=== PATIENT | male | born 1940 | race Caucasian/White ===

== ENCOUNTER 2018-05-19 05:38 | Inpatient (IN) ==
[2018-05-19] MEDS ORDERED: Sodium Chlor 0.9% Inj 500 ML IV.CONT ONE (06:15)
[2018-05-19] MEDS ORDERED: Chlorhexidine Gluconate 2% 1 Pack (2 Cloths) TOPICAL ONE (06:15)
[2018-05-19] MEDS ORDERED: Metoprolol Tartrate 25 MG Tablet PO ONE (06:15)
[2018-05-19 06:27] LABS: Baso # (Auto) 0.1 th/mm3 (0.0-0.2); Baso % (Auto) 0.8 % (0.0-2.0); Eos # (Auto) 0.2 th/mm3 (0.0-0.4); Hematocrit 42.2 % (39.0-51.0); Hemoglobin 14.5 gm/dL (13.0-17.0); Lymph # (Auto) 2.4 th/mm3 (1.0-4.8); Lymph % (Auto) 32.4 % (9.0-44.0); Mean Corpuscular HGB Conc 34.4 % (32.0-36.0); Mean Corpuscular Hemoglobin 32.3 pg (27.0-34.0); Mean Platelet Volume 8.9 fL (7.0-11.0); Mono # (Auto) 0.7 th/mm3 (0.0-0.9); Mono % (Auto) 8.9 % (0.0-8.0); Neut # (Auto) 4.1 th/mm3 (1.8-7.7); Neut % (Auto) 54.9 % (16.0-70.0); Platelet Count 139 th/mm3 (150-450); Red Blood Count 4.49 mil/mm3 (4.50-5.90); Red Cell Distribution Width 12.8 % (11.6-17.2); White Blood Count 7.5 th/mm3 (4.0-11.0)
[2018-05-19] MEDS ORDERED: ceFAZolin 2 GM Premix Inj 2 GM/50 ML PIGGYBACK IV.SIG ONE (06:28)
[2018-05-19] MEDS ORDERED: Gelatin Size 100 Topical Foam ONE (06:28)
[2018-05-19] MEDS ORDERED: Heparin 10,000 UNITS/10 ML Vial (for IV use) ONE (06:28)
[2018-05-19] MEDS ORDERED: Heparin/NS PF Inj 500 ML ONE (06:28)
[2018-05-19] MEDS ORDERED: Thrombin Topical Soln 20,000 UNIT Vial TOPICAL ONE (06:29)
[2018-05-19] MEDS ORDERED: Protamine Sulfate Inj 50 MG/5 ML Vial ONE (06:40)
[2018-05-19 06:42] LABS: Calcium 8.8 mg/dL (8.5-10.1)
[2018-05-19] MEDS ORDERED: fentaNYL Citrate Inj 250 MCG/5 ML Ampul ONE (07:15)
[2018-05-19] MEDS ORDERED: Phenylephrine/NS 1000 MCG/10ML Syringe IV.PUSH ONE (07:32)
[2018-05-19] MEDS ORDERED: Neostigmine Inj 5 MG/5 ML Syringe IV.PUSH ONE (07:32)
[2018-05-19] MEDS ORDERED: Normosol-R pH 7.4 Inj 1,000 ML IV.CONT ONE (07:32)
[2018-05-19] MEDS ORDERED: Lidocaine PF 1% Inj 5 ML Syringe OTHER ONE (07:32)
[2018-05-19] MEDS ORDERED: Glycopyrrolate Inj 1 MG/5 ML Syringe IV.PUSH ONE (07:32)
--- NOTE | 2018-05-19 07:32 | XR ---
EXAM DATE: 05/19/2018 7:27 AM EST AGE/SEX: 78 years / Male INDICATIONS: Evaluate for pneumonia, pneumonia or communicable disease. Preop chest for carotid surg jagdish today. CLINICAL DATA: This is the patient's initial encounter. Patient reports that signs and symptoms have been present for 1 day and indicates a pain score of 0/10. MEDICAL/SURGICAL HISTORY: Stroke. Diabetes mellitus type II. Hypertension. CVA Cholecystect arnel. Fusion, lumbar. COMPARISON: POI, XR CHEST PA AND LAT, 05/08/2015. . FINDINGS: A single AP view of the chest demonstrates the lungs to be symmetrically aerated without evidence of mass, infiltrate or effusion. The cardiomediastinal contours are unremarkable. Osseous structures a re intact. CONCLUSION: The lungs are clear. Electronically signed by: Herrera Watson MD Board Certified Radiologist 05/19/2018 7:31 AM EST
[2018-05-19] MEDS ORDERED: Bisacodyl 10 MG Supp RECTAL PRN (10:37)
[2018-05-19] MEDS ORDERED: Morphine Inj 4 MG/ML Vial IV.PUSH PRN (10:37)
[2018-05-19] MEDS ORDERED: Sod Chloride 0.9% Inj 1,000 ML IV.CONT SCH (10:45)
--- NOTE | 2018-05-19 10:47 | P.OP ---
Preoperative Diagnosis: Severe right carotid artery stenosis Postoperative Diagnosis: Severe right carotid artery stenosis Date of procedure: 05/19/18 Procedure: 1. Right carotid artery endarterectomy pericardial patch angioplasty Implants: Bovine pericardial patch Anesthesia: KITTYA Surgeon: Mark Crowder MD Estimated blood loss (mL): 50 Operation and Findings: Findings 1. High bifurcation of the right carotid artery. 2. Successful right carotid artery endarterectomy pericardial patch angioplasty x3. I used an [place] shunt and my total clamp time was less than 1 minute. Operation details The patient was taken to the operating room, laid supine on the OR table. After general trach anesthesia, the patient was prepped and draped in the standard sterile fashion. An incision was made anterior to the right sternocleidomastoid. Dissection was taken down through the subcutaneous tissues electrocautery. The carotid sheath was entered. The facial vein identified ligated and divided. We noted that the carotid bifurcation is high. I divided the posterior belly of the digastric to be able to get proximal control. The common carotid external carotid artery internal carotid artery and superior thyroid artery were dissected and encircled Silastic loop. The patient was heparinized. Proximal distal control was obtained and arteriotomy is created in the common carotid artery extended into the internal carotid artery. The shunt was placed to establish flow from the common carotid artery to the internal carotid artery. Endarterectomy was performed. Fine-tuning was also performed to remove fine debris. The artery was repaired using a pericardial patch that was cut at appropriate length and secured using a 6-0 Prolene suture in the running fashion. All vessels were flushed. The shunt was removed and the suture line was completed. I establish flow from the common carotid artery to the external carotid artery then into the internal carotid artery. Hemostasis achieved. #19 MADISON drain placed into the wound and brought through the skin using a different stab wound and secured using nylon suture. The wound was closed in multiple layers using Vicryl suture followed by Monocryl suture. The patient was awakened from anesthesia, with no neurological deficits and his tongue was midline. He was taken to the postop care unit in stable condition.
[2018-05-19] MEDS ORDERED: Dextrose 50% in Water 50 ML Vial IV.PUSH PRN (11:48)
--- NOTE | 2018-05-19 11:58 | P.CONCC ---
History of Present Illness Service: Critical care medicine Consult date: 05/19/18 Requesting Physician: Mark Crowder Reason for Consult: Critical care management Primary Care Provider: Gaston Haney MD Chief Complaint: Right carotid stenosis History of Present Illness: This is a 78-year-old male. Admission 05/19/2018. Date of consultation 05/19/2018. Past medical history includes elevated BMI, diabetes mellitus type 2, hypertension, hyperlipidemia, depression, gastroesophageal disease, right foot drop, obstructive sleep apnea on CPAP at night, prior tobaccoism. Patient presents to [facility] today for an elective Right carotid artery endarterectomy pericardial patch angioplasty with vascular surgery. Patient is noted to have significant right carotid stenosis on a CT angiogram the neck 05/16. 90% on the right side with 30-40% on the left side carotid. In the OR, received 2300 crystalloid. EBL 100 cc. 500 cc urine output. Patient currently on 2 L nasal cannula clinically stable. Complaining of irritation with [place] catheter placement.. Review of Systems Constitutional: Reports weight loss, Denies anorexia, Denies body ache(s), Denies weakness, Denies weight gain Eyes: Denies blind spots, Denies blurry vision Ears, Nose, Mouth, and Throat: Denies abnormal hearing, Denies poor balance, Denies sinus pressure Cardiovascular: Denies chest pain, Denies shortness of breath, Denies shortness of breath with activity Respiratory: Denies cough, Denies pain on inspiration, Denies shortness of breath with activity Gastrointestinal: Reports heartburn, Denies abdominal pain, Denies nausea, Denies vomiting Genitourinary: Denies urinary frequency, Denies urinary hesitancy Musculoskeletal: Denies back pain, Denies body aches, Denies muscle weakness Skin/Breast: Denies changing lesions, Denies skin ulcer Neurologic: Denies abnormal hearing, Denies numbness, Denies sensory deficit Psychiatric: Denies anxiety, Denies confusion, Denies depression Endocrine: Denies cold intolerance, Denies excessive sweating Hematologic/Lymphatic: Denies easy bleeding Allergic/Immunologic: Denies GI upset with certain foods PMFSH - History History Provided By: Patient - Medical History Medical History: Medical History (Last Reviewed 05/19/18 @ 11:56 by Claude Zarate MD) Arthritis CVA (cerebral vascular accident) Dental crowns present Depression Diabetes Foot drop, right Hammertoe of right foot High blood pressure High cholesterol Pain Sleep apnea with use of continuous positive airway pressure (CPAP) Wears eyeglasses - Surgical History Surgical History: Surgical History (Last Reviewed 05/19/18 @ 11:56 by Claude Zarate MD) History of lumbar fusion Hx of cholecystectomy - Family History Family History: Family History (Last Updated 05/19/18 @ 11:56 by Claude Zarate MD) Other Family history non-contributory - Social History I have reviewed the patient's Social History: Yes - Tobacco History Second Hand Smoke Exposure: No Tobacco Use In Past 30 Days: No Smoking Status: Former smoker - Alcohol History How Often Do You Have a Drink Containing Alcohol: Monthly or less - Substance Use History Substance History: No History of Abuse - Travel History Recent Travel in the [place] Within the Last 8 Weeks: No Recent Travel Out of the Country Within the Last 8 Weeks: No Medications and Allergies Active Medications: Active Medications Al Hydroxide/Mg Hydroxide (Milk Of Magnesia Liq) 30 ml PO Q12H PRN PRN Reason: Mild Constipation Albuterol (Albuterol Neb (Prn)) 2.5 mg NEB Q2HR NEB PRN PRN Reason: DYSPNEA Aspirin (Aspirin Chew) 81 mg PO DAILY [facility] Bisacodyl (Dulcolax Supp) 10 mg RECTAL DAILY PRN PRN Reason: SEVERE CONSITIPATION Citalopram Hydrobromide (Celexa) 20 mg PO DAILY [facility] Dextrose (D50w Vial) 50 ml IV.PUSH UNSCH PRN PRN Reason: PER HYPOGLYCEMIA PROTOCOL Diclofenac Sodium (Voltaren Dr) 50 mg PO DAILY [facility] Enoxaparin Sodium (Lovenox Inj) 40 mg SQ ONCE ONE Stop: 05/19/18 21:01 Famotidine (Pepcid) 20 mg PO BID [facility] Glucagon (Glucagon Inj) 1 mg OTHER PRN PRN PRN Reason: for Hypoglycemia Protocol Hydrochlorothiazide (Hydrodiuril) 25 mg PO DAILY [facility] Hydromorphone HCl (Dilaudid) 2 mg PO Q4H PRN PRN Reason: PAIN SCALE 6 TO 10 Lactated Ringer's (Lr 1000 Ml Inj) 1,000 mls @ 30 mls/hr IV.CONT .Q24H ONE Stop: 05/20/18 06:14 Last Admin: 05/19/18 06:54 Dose: 30 mls/hr Sodium Chloride (Ns Inj) 500 mls @ 30 mls/hr IV.CONT .[id number] ONE Stop: 05/19/18 22:54 Last Admin: 05/19/18 06:54 Dose: Not Given Sodium Chloride (Ns Inj) 1,000 mls @ 125 mls/hr IV.CONT .Q8H [facility] Insulin Aspart (Novolog Insulin Correctional Sugar Inj) 0 unit SQ Q6HR [facility]IDA; Protocol Lactulose (Lactulose Liq) 30 ml PO DAILY PRN PRN Reason: SEVERE CONSITIPATION Losartan Potassium (Cozaar) 100 mg PO DAILY [facility] Morphine Sulfate (Morphine Inj) 2 mg IV.PUSH Q1H PRN PRN Reason: BREAKTHROUGH PAIN Oxycodone HCl (Roxicodone) 5 mg PO Q4H PRN PRN Reason: PAIN SCALE 1 TO 5 Pravastatin Sodium (Pravachol) 40 mg PO DAILY@1800 [facility] Senna/Docusate Sodium (Isabel-Colace) 1 tab PO BID [facility] Sennosides (Senokot) 17.2 mg PO Q12H PRN PRN Reason: Moderate Constipation Sodium Chloride (Ns Flush) 2 ml IV.FLUSH PRN PRN PRN Reason: FLUSH AFTER USING IV ACCESS Allergies Allergy/AdvReac Type Severity Reaction Status Date / Time No Known Allergies Allergy Verified 05/19/18 06:22 Home Medications Medication Instructions Recorded Confirmed Type citalopram 20 mg PO DAILY 05/18/18 05/19/18 History diclofenac submicronized [Zorvolex] 35 mg PO DAILY 05/18/18 05/19/18 History losartan-hydrochlorothiazide 1 tab PO DAILY 05/18/18 05/19/18 History metformin 500 mg PO DAILY 05/18/18 05/19/18 History simvastatin 20 mg PO QPM 05/18/18 05/19/18 History Physical Exam Vital signs: Vital Signs 05/19/18 06:23 05/19/18 11:04 Temperature 99.9 F H 98.2 F Pulse Rate 87 77 Respiratory Rate 18 16 Blood Pressure 150/70 H 121/46 L Pulse Oximetry 95 97 Intake & Output 05/18/18 05/19/18 05/19/18 18:59 06:59 18:59 Intake Total 2300 / 2300 Output Total 650 / 650 Balance 1650 / 1650 Weight 96.3 kg Intake: Anesthesia Amount 2300 / 2300 Output: Estimated Blood Loss 100 / 100 Urine Amount (Catheter) 550 / 550 Indwelling Temp Sensing 550 / 550 Catheter Other: Weight On Admission 96.3 kg - Constitutional no acute distress - Routine HEENT Exam Head: Present: normocephalic, atraumatic Eye: Present: EOMI, PERRL, normal accommodation ENT: Present: mucous membranes moist - Routine Neck Exam Present: supple, full ROM. Absent: JVD - Routine Respiratory Exam Present: CTA bilaterally. Absent: accessory muscle use, wheezes - Routine Cardiovascular Exam Present: RRR, S1, S2. Absent: murmur - Routine Abdominal Exam Present: soft, normoactive bowel sounds. Absent: tenderness - Routine Exam Patient deferred: penile exam, testicular exam, scrotal exam, groin exam, perineal exam - Routine Skin Exam Absent: intact, cyanosis, erythema - Routine Neurological Exam Present: alert, oriented X3, CN II-XII intact. Absent: sensory deficit, motor deficit - Detailed Neurological Exam: Coma Scale Eye Opening: Spontaneous Verbal Response: Oriented Motor Response: Obey commands [place] Coma Scale Total: 15 - Routine Psychiatric Exam Present: normal affect - Urinary Catheter Management Indwelling Temp Sensing Catheter Cath placed during this visit: yes Reason for continuing: Hourly intake/output Insertion date: 05/19/18 Insertion time: 07:47 Septic Shock Reassessment Septic shock perfusion: reassessment completed Assessment and Plan - Assessment and Plan Plan: Neuro/Psych: Depression Hydromorphone 1 mg IV every 4 hours as needed pain management Continue citalopram 20 mg daily/home medication for depression On diclofenac at home CV: Essential hypertension Hyperlipidemia Currently on losartan/hydrochlorthiazide 100/25 1 tablet daily. Continue pravastatin 40 mg daily/hospital substitution for simvastatin for hyperlipidemia Currently on 0.9% NaCl at 125 cc an hour Resp: Obstructive sleep apnea Nasal cannula to maintain saturations greater than equal to 90% Incentive spirometry while awake As needed albuterol aerosols every 2 hours. As needed dyspnea Okay to use home CPAP at night. GI: ADA diet Famotidine for GI prophylaxis Docusate serum/senna 1 tablet twice daily for bowel regimen : Remove [place] catheter Endo: Diabetes mellitus Sliding scale insulin aspart Accu-Cheks every 6 hours to maintain euglycemia/ On metformin 5 mg daily at home. Currently on hold Renal: Elevated creatinine Creatinine is currently 1.45. Recheck BMP in a.m. 05/20. Avoid nephrotoxic medications Heme: CBC within normal limits Check coags now ID: Monitor for signs and symptomatology infection MSK: Elevated BMI Weight loss encouraged FEN: Currently on 0.9% NaCl at 125 cc an hour Replace electrolytes as clinically indicated per ICU electrolyte protocol Access -Utilize peripheral IV. Central line if indicated. -Right arterial line/radial placed in OR 05/19 Prophylaxis -GI -famotidine -DVT -received 1 dose of enoxaparin today Level 2 consult Code Status: Full code Discussed Condition With: Patient. Care plan discussed and all questions answered
[2018-05-19] MEDS: Insulin NovoLOG Aspart Correctional Sugar Inj SQ SCH ×2 (13:38→18:19)
--- NOTE | 2018-05-19 15:57 | ECG ---
Date Performed: 05/19/2018 Time Performed: 06:46:46 PTAGE: 78 years EKG: Sinus rhythm WITH SINUS ARRHYTHMIA INFERIOR MYOCARDIAL INFARCTION , PROBABLY OLD ABNORMAL ECG Since PREVIOUS TRACING , no significant change noted PREVIOUS TRACIN08/12/2015 14.58 DOCTOR: Zina Cooley Interpretating Date/Time 05/19/2018 15:56:00
[2018-05-19] MEDS ORDERED: Enoxaparin Inj 40 MG/0.4 ML Syringe SQ ONE (21:00)
[2018-05-19] MEDS: Senna/Docusate Sodium 8.6/50 MG Tablet PO SCH (22:03)
[2018-05-19] MEDS: Famotidine 20 MG Tablet PO SCH (22:03)
[2018-05-20] MEDS: Insulin NovoLOG Aspart Correctional Sugar Inj SQ SCH ×3 (00:25→12:11)
[2018-05-20 05:43] LABS: Hematocrit 34.4 % (39.0-51.0); Hemoglobin 11.6 gm/dL (13.0-17.0); Mean Corpuscular HGB Conc 33.6 % (32.0-36.0); Mean Corpuscular Hemoglobin 31.9 pg (27.0-34.0); Mean Platelet Volume 9.2 fL (7.0-11.0); Platelet Count 118 th/mm3 (150-450); Red Blood Count 3.63 mil/mm3 (4.50-5.90); Red Cell Distribution Width 13.2 % (11.6-17.2)
[2018-05-20 06:11] LABS: Calcium 7.6 mg/dL (8.5-10.1); Carbon Dioxide 25.9 meq/L (21.0-32.0); Potassium 4.1 meq/L (3.5-5.1)
--- NOTE | 2018-05-20 07:53 | P.PNCC ---
Subjective Subjective Remarks/Hospital Course: This is a 78-year-old male. Admission 05/19/2018. Date of consultation 05/19/2018. Past medical history includes elevated BMI, diabetes mellitus type 2, hypertension, hyperlipidemia, depression, gastroesophageal disease, right foot drop, obstructive sleep apnea on CPAP at night, prior tobaccoism. Patient presents to [facility] today for an elective Right carotid artery endarterectomy pericardial patch angioplasty with vascular surgery. Patient is noted to have significant right carotid stenosis on a CT angiogram the neck 05/16. 90% on the right side with 30-40% on the left side carotid. In the OR, received 2300 crystalloid. EBL 100 cc. 500 cc urine output. Patient currently on 2 L nasal cannula clinically stable. Complaining of irritation with [place] catheter placement. SUBJECTIVE: 05/20: Complaining of pain at surgical site overnight. Minimal output from MADISON. Afebrile. Tolerating nasal CPAP. Objective Vital Signs / I&O: Vital Signs 05/19/18 11:04 05/19/18 13:18 05/19/18 15:00 Temperature 98.2 F 98.2 F Pulse Rate 77 73 Respiratory Rate 16 18 Blood Pressure 121/46 L 123/52 L Pulse Oximetry 97 97 98 05/19/18 18:09 05/19/18 19:00 05/19/18 19:20 Temperature 97.6 F Pulse Rate 78 96 H Respiratory Rate 18 Blood Pressure 109/56 L Pulse Oximetry 96 96 05/19/18 20:00 05/19/18 21:25 05/19/18 23:00 Temperature Pulse Rate 71 Respiratory Rate Blood Pressure Pulse Oximetry 95 97 05/20/18 00:00 05/20/18 03:00 05/20/18 04:00 Temperature 99.5 F 98.3 F Pulse Rate 69 69 69 Respiratory Rate 18 18 Blood Pressure 94/57 L 108/62 Pulse Oximetry 96 94 L Intake & Output 05/19/18 05/20/18 05/20/18 18:59 06:59 18:59 Intake Total 3020 / 3020 1480 / 1480 Output Total 1680 / 1680 945 / 945 Balance 1340 / 1340 535 / 535 Weight 98.1 kg Intake: IV 1000 / 1000 NS Inj 1,000 ML @ 125 mls/hr IV 1000 / 1000 .CONT .Q8H [facility] Rx#:[id number] Oral 720 / 720 480 / 480 Anesthesia Amount 2300 / 2300 Output: Urine 100 / 100 925 / 925 Estimated Blood Loss 100 / 100 Urine Amount (Catheter) 1450 / 1450 Indwelling Temp Sensing 1450 / 1450 Catheter Wound Drainage 20 Right Neck Pillo 20 Other: # Bowel Movements 0 Result Diagrams: 05/20/18 05:25 05/20/18 05:25 Imaging: Chest X-Ray 05/19/18 00:00 CONCLUSION: The lungs are clear. Objective Remarks: GENERAL: 78-year-old male currently on nasal CPAP in no acute distress SKIN: Warm and dry. HEAD: Atraumatic. Normocephalic. EYES: Pupils equal and round. No scleral icterus. No injection or drainage. ENT: No nasal bleeding or discharge. Mucous membranes pink and moist. NECK: Trachea midline. No JVD. Status post right carotid enterectomy. MADISON in place with minimal serosanguineous drainage CARDIOVASCULAR: Regular rate and rhythm. S1, S2. No S4. RESPIRATORY: No accessory muscle use. Clear to auscultation. Breath sounds equal bilaterally. GASTROINTESTINAL: Abdomen soft, non-tender, nondistended. Hepatic and splenic margins not palpable. MUSCULOSKELETAL: Extremities without clubbing, cyanosis, or edema. No obvious deformities. NEUROLOGICAL: Awake and alert. No obvious cranial nerve deficits. Motor grossly within normal limits. Five out of 5 muscle strength in the arms and legs. Normal speech. PSYCHIATRIC: Appropriate mood and affect; insight and judgment normal. Assessment and Plan - Assessment and Plan Plan: Neuro/Psych: Depression Hydromorphone 2 mg IV every 4 hours and morphine sulfate 2 mg IV q. one hours as needed pain management Continue citalopram 20 mg daily/home medication for depression On diclofenac at home. 50 mg daily resume per vascular surgery CV: Postop day #1 right carotid enterectomy Essential hypertension Hyperlipidemia Currently on losartan/hydrochlorthiazide 100/25 1 tablet daily. Continue pravastatin 40 mg daily/hospital substitution for simvastatin for hyperlipidemia Currently on 0.9% NaCl at 125 cc an hour Resp: Obstructive sleep apnea Nasal cannula to maintain saturations greater than equal to 92% Incentive spirometry while awake As needed albuterol aerosols every 2 hours. As needed dyspnea Okay to use home CPAP at night. GI: ADA diet Famotidine for GI prophylaxis Docusate serum/senna 1 tablet twice daily for bowel regimen : Remove [place] catheter Endo: Diabetes mellitus Sliding scale insulin aspart Accu-Cheks every 6 hours to maintain euglycemia/ On metformin 500 mg daily at home. Currently on hold Renal: Elevated creatinine resolving Creatinine is currently 1.19. Recheck BMP in a.m. 05/21. Avoid nephrotoxic medications Heme: Leukocytosis Normocytic anemia Thrombocytopenia No indication for transfusion of blood products at this time Monitor CBC daily. Follow trends. ID: Monitor for signs and symptomatology infection MSK: Elevated BMI Weight loss encouraged FEN: Currently on 0.9% NaCl at 125 cc an hour Replace electrolytes as clinically indicated per ICU electrolyte protocol Access -Utilize peripheral IV. Central line if indicated. -Right arterial line/radial placed in OR 05/19 Prophylaxis -GI -famotidine -DVT -received 1 dose of enoxaparin 05/19 Level 2 follow-up Code Status: Full code
--- NOTE | 2018-05-20 07:57 | P.PNVS ---
Subjective Subjective/Hospital Course: doing well no complaints [place] diet Objective Vital Signs / I&O: Vital Signs 05/19/18 11:04 05/19/18 13:18 05/19/18 15:00 Temperature 98.2 F 98.2 F Pulse Rate 77 73 Respiratory Rate 16 18 Blood Pressure 121/46 L 123/52 L Pulse Oximetry 97 97 98 05/19/18 18:09 05/19/18 19:00 05/19/18 19:20 Temperature 97.6 F Pulse Rate 78 96 H Respiratory Rate 18 Blood Pressure 109/56 L Pulse Oximetry 96 96 05/19/18 20:00 05/19/18 21:25 05/19/18 23:00 Temperature Pulse Rate 71 Respiratory Rate Blood Pressure Pulse Oximetry 95 97 05/20/18 00:00 05/20/18 03:00 05/20/18 04:00 Temperature 99.5 F 98.3 F Pulse Rate 69 69 69 Respiratory Rate 18 18 Blood Pressure 94/57 L 108/62 Pulse Oximetry 96 94 L Intake & Output 05/19/18 05/20/18 05/20/18 18:59 06:59 18:59 Intake Total 3020 / 3020 1480 / 1480 Output Total 1680 / 1680 945 / 945 Balance 1340 / 1340 535 / 535 Weight 98.1 kg Intake: IV 1000 / 1000 NS Inj 1,000 ML @ 125 mls/hr IV 1000 / 1000 .CONT .Q8H [facility] Rx#:[id number] Oral 720 / 720 480 / 480 Anesthesia Amount 2300 / 2300 Output: Urine 100 / 100 925 / 925 Estimated Blood Loss 100 / 100 Urine Amount (Catheter) 1450 / 1450 Indwelling Temp Sensing 1450 / 1450 Catheter Wound Drainage 30 / 30 20 / 20 Right Neck Pillo 30 / 30 20 / 20 Other: # Bowel Movements 0 Physical Exam: No neurological deficits Tongue is midline Right neck soft, no hematoma. MADISON drain with serosanguineous output. Laboratory Results - last 24 hr 05/19/18 05/19/18 05/20/18 12:35 18:09 00:09 WBC RBC Hgb Hct MCV MCH MCHC RDW Plt Count MPV Sodium Potassium Chloride Carbon Dioxide Anion Gap BUN Creatinine Estimated GFR POC Glucose 222 H 238 H 205 H Random Glucose Calcium 05/20/18 05/20/18 05/20/18 05:25 05:25 05:25 WBC 12.0 H D RBC 3.63 L Hgb 11.6 L D Hct 34.4 L MCV 95.0 MCH 31.9 MCHC 33.6 RDW 13.2 Plt Count 118 L MPV 9.2 Sodium 139 Potassium 4.1 Chloride 105 Carbon Dioxide 25.9 Anion Gap 8 BUN 20 H Creatinine 1.19 Estimated GFR 59 L POC Glucose 171 H Random Glucose 164 H Calcium 7.6 L D Impressions Chest X-Ray 05/19/18 00:00 CONCLUSION: The lungs are clear. Assessment and Plan - Plan Status post right carotid artery endarterectomy postop day #1 1. DC MADISON drain, [place] 2. Advance diet as tolerated 3. DC later home today 4. To schedule follow-up appointment in 4 weeks with carotid duplex ultrasound.
--- NOTE | 2018-05-20 08:02 | P.DS ---
Discharge Summary - Admission Date 05/19/18 05:38 - Admission Diagnosis (1) Carotid artery stenosis - Discharge Date 05/20/18 - Discharge Diagnosis (1) Carotid artery stenosis Status: Acute - Summary Brief History from admission: 78-year-old male with severe right carotid artery stenosis admitted for elective right carotid artery endarterectomy Procedure: Right carotid artery endarterectomy Significant Findings: Abnormal Lab Results 05/19/18 05/19/18 05/20/18 12:35 18:09 00:09 WBC RBC Hgb Hct MCV MCH MCHC RDW Plt Count MPV Sodium Potassium Chloride Carbon Dioxide Anion Gap BUN Creatinine Estimated GFR POC Glucose 222 H 238 H 205 H Random Glucose Calcium 05/20/18 05/20/18 05/20/18 05:25 05:25 05:25 WBC 12.0 H D RBC 3.63 L Hgb 11.6 L D Hct 34.4 L MCV 95.0 MCH 31.9 MCHC 33.6 RDW 13.2 Plt Count 118 L MPV 9.2 Sodium 139 Potassium 4.1 Chloride 105 Carbon Dioxide 25.9 Anion Gap 8 BUN 20 H Creatinine 1.19 Estimated GFR 59 L POC Glucose 171 H Random Glucose 164 H Calcium 7.6 L D Hospital Course: The patient underwent the procedure successfully. He was admitted to the ICU for postop care. His hospitalization was uneventful. He was tolerating clear liquid and advanced successfully. His MADISON drain had minimal output and his neck was soft with no hematoma. He was neurologically intact with no cranial nerve deficits. The patient was discharged home to follow-up with me in 4 weeks with a carotid duplex ultrasound. Condition on discharge is improved. - Discharge Instructions Any questions or concerns: Call [facility] [phone] Discharge Plan - Discharge Disposition Patient Disposition: Discharge Home - Discharge Condition Condition: Good - Discharge Order Discharge Orders: Discharge Order (Routine); Ordered 05/20/18 Ordered By: Mark Crowder - Physicians Team Primary Care Provider: Gaston Haney Attending Provider: Mark Crowder Other Providers: Claude Zarate MD - Rxs /Orders / Referrals /Forms Prescriptions: New aspirin 81 mg Tablet,Chewable 81 mg PO DAILY RF: 0 oxycodone-acetaminophen [Percocet] 5-325 mg Tablet 1 tab PO Q4HR Qty: 40 RF: 0 Continue citalopram 20 mg Tablet 20 mg PO DAILY diclofenac submicronized [Zorvolex] 35 mg Capsule 35 mg PO DAILY losartan-hydrochlorothiazide 100-25 mg Tablet 1 tab PO DAILY metformin 500 mg Tablet 500 mg PO DAILY simvastatin 20 mg Tablet 20 mg PO QPM Referrals: Gaston Haney MD [Primary Care Provider] - See Instructions - Discharge Instructions Patient Printed Instructions: Carotid Endarterectomy (DC)
[2018-05-20] MEDS: Famotidine 20 MG Tablet PO SCH (08:14)
[2018-05-20] MEDS: Senna/Docusate Sodium 8.6/50 MG Tablet PO SCH (08:14)
[2018-05-20 08:23] VITALS: RESP 16; O2SAT 97
[2018-05-20] MEDS ORDERED: Citalopram 20 MG Tablet PO SCH (09:00)
[2018-05-20] MEDS ORDERED: hydroCHLOROthiazide 25 MG Tablet PO SCH (09:00)
[2018-05-20 12:09] VITALS: BP 130/59; PULSE 67; TEMP 98
== END 2018-05-20 13:20 | disposition home or self-care (01) | DRG 39 ==
LOC: HSDI 05:38 → HCVI 10:51
PROVIDERS: ADMIT Surgery; ATTEND Surgery
CPT/HCPCS: 71010; 71045; 80048; 82948; 82962; 85025; 85027; 86850; 86900; 86901; 93005; 94150; 97162; J0690; J1100; J1644; J1650; J1815; J2370; J2405; J2704; J2710; J2720; J3010; J7030; J7120